=== PATIENT | female | born 1950 | race African-American/Black ===

== ENCOUNTER 2019-06-07 14:54 | Emergency (ER) | payer MEDICARE ==
[~2019-06-07] VITALS: Ht 165.1 cm; Wt 88.9 kg
[2019-06-07 16:12] VITALS: BP 146/68
[2019-06-07] MEDS ORDERED: LIDOCAINE 1% HCL (LOCAL ANESTH.) INJ 20ML MDV IJ ONE (16:45)
[2019-06-07] MEDS ORDERED: BACITRACIN TOP OINT 1 UD PKG TOP ONE (16:45)
[2019-06-07] MEDS ORDERED: TETANUS-DIPTH-ACEL PERTUSSIS 0.5ML SYRG IM ONE (18:45)
== END 2019-06-07 17:59 | disposition home or self-care (01) ==
LOC: ER 14:54
DX: S61.012A Laceration without foreign body of left thumb without damage to nail, initial encounter (principal); M19.90 Unspecified osteoarthritis, unspecified site; J45.909 Unspecified asthma, uncomplicated; I10 Essential (primary) hypertension; Z86.73 Personal history of transient ischemic attack (TIA), and cerebral infarction without residual deficits; W26.8XXA Contact with other sharp object(s), not elsewhere classified, initial encounter; Y93.G3 Activity, cooking and baking; Y99.8 Other external cause status; Y92.89 Other specified places as the place of occurrence of the external cause
CPT/HCPCS: 12001; 90471; 90715; 99283; J2001

== ENCOUNTER 2021-08-07 04:42 | Emergency (ER) | payer MEDICARE, OTHER ==
[~2021-08-07] VITALS: Ht 165.1 cm; Wt 95.3 kg
[2021-08-07] MEDS ORDERED: METOCLOPRAMIDE HCL 5MG/ml INJ 2ml VIAL IV ONE (05:00)
[2021-08-07 05:57] LABS: Basophils # (auto) 0 10 ^3/uL (0-0.2); Basophils % (auto) 0.4 % (0.0-2.0); Eosinophils # (auto) 0 10 ^3/uL (0-0.8); Eosinophils % (auto) 0.4 % (0.0-7.0); Hematocrit 35.4 % (36.0-46.0); Lymphocytes # (auto) 0.7 10 ^3/uL (0.4-5.4); Lymphocytes % (auto) 6.6 % (10.0-50.0); Mean Corpuscular Hemoglobin 30.2 pg (28.0-32.0); Mean Corpuscular Volume 88.8 fL (80.0-100.0); Monocytes # (auto) 0.4 10 ^3/uL (0-1.3); Neutrophils # (auto) 9.9 10 ^3/uL (1.6-8.6); Neutrophils % (auto) 88.6 % (37.0-80.0); Red Blood Cells 3.98 10^6/uL (4.0-5.20); Red Cell Distribution Width 13.6 % (11.8-14.3); White Blood Cell 11.1 10^3/uL (4.4-10.8)
[2021-08-07 07:38] LABS: Potassium 3.5 mmol/L (3.5-5.1)
[2021-08-07 07:42] LABS: Albumin 3.2 g/dL (3.4-5.0); BUN/Creatinine Ratio 15.9; Calcium 9.7 mg/dL (8.5-10.1)
[2021-08-07 07:44] LABS: Bilirubin, Total 0.3 mg/dL (0.2-1.0)
[2021-08-07] MEDS ORDERED: cefTRIAXone 1GM/50ML D5W 50 ML IV ONE ×2 (09:15)
[2021-08-07 10:18] VITALS: BP 132/59
== END 2021-08-07 11:06 | disposition home or self-care (01) ==
LOC: EDBD 04:42 → ER 04:42
DX: R10.84 Generalized abdominal pain (principal); R11.2 Nausea with vomiting, unspecified; I11.0 Hypertensive heart disease with heart failure; I50.9 Heart failure, unspecified; Z86.73 Personal history of transient ischemic attack (TIA), and cerebral infarction without residual deficits
CPT/HCPCS: 36415; 74176; 80053; 85025; 93005; 96365; 96375; 99285; J0696; J2765

== ENCOUNTER 2023-03-09 10:26 | Inpatient (IN) | payer MEDICARE, MEDICAID ==
[~2023-03-09] VITALS: Ht 162.6 cm; Wt 63.5 kg
[2023-03-09] MEDS ORDERED: ACETAMINOPHEN 500 MG TAB PO ONE (12:15)
[2023-03-09 12:59] LABS: Basophils # (auto) 0 10 ^3/uL (0-0.2); Basophils % (auto) 0.3 % (0.0-2.0); Eosinophils # (auto) 0 10 ^3/uL (0-0.8); Eosinophils % (auto) 0.4 % (0.0-7.0); Hematocrit 38.1 % (36.0-46.0); Hemoglobin 12.8 g/dL (12.2-16.2); Lymphocytes # (auto) 1.3 10 ^3/uL (0.4-5.4); Lymphocytes % (auto) 12.4 % (10.0-50.0); Mean Corpuscular Hgb Conc. 33.6 g/dL (32.0-36.0); Mean Corpuscular Volume 92.1 fL (80.0-100.0); Monocytes # (auto) 0.6 10 ^3/uL (0-1.3); Monocytes % (auto) 6.1 % (0.0-12.0); Neutrophils # (auto) 8.3 10 ^3/uL (1.6-8.6); Neutrophils % (auto) 80.8 % (37.0-80.0); Red Blood Cells 4.13 10^6/uL (4.0-5.20); Red Cell Distribution Width 13.3 % (11.8-14.3); White Blood Cell 10.2 10^3/uL (4.4-10.8)
[2023-03-09 13:24] LABS: Albumin 3.8 g/dL (3.4-5.0); Calcium 9.9 mg/dL (8.5-10.1); Potassium 4.2 mmol/L (3.5-5.1)
[2023-03-09 13:28] LABS: BUN/Creatinine Ratio 21.7 (10.0-20.0); Bilirubin, Total 0.4 mg/dL (0.2-1.0); Total Protein 6.6 g/dL (6.4-8.2)
[2023-03-09] MEDS ORDERED: AMLO-489 PO (15:14)
[2023-03-09] MEDS ORDERED: QUET1TAB11 PO (15:14)
[2023-03-09] MEDS ORDERED: DONE1TAB88 PO (15:14)
[2023-03-09] MEDS ORDERED: ONDANSETRON HCL 4 MG/2 ML VIAL IV PRN (15:15)
[2023-03-09] MEDS ORDERED: ACETAMINOPHEN 325 MG TAB PO PRN (15:15)
[2023-03-09] MEDS: SODIUM CHLORIDE 0.9% 1,000 ML IV SCH (15:15)
[2023-03-09] MEDS ORDERED: NITROGLYCERIN 0.4 MG SL TAB SL PRN (15:15)
[2023-03-09] MEDS ORDERED: MORPHINE SULFATE INJ 2 MG/ml SYRG IV PRN (15:15)
[2023-03-09] MEDS: amLODIPine BESYLATE 5 MG TAB PO SCH (15:30)
[2023-03-09] MEDS ORDERED: HALOPERIDOL LACTATE 5 MG/ML INJ VIAL IM PRN (20:00)
[2023-03-09] MEDS ORDERED: LORazepam 2MG/ML-1ML VIAL IV PRN (20:00)
[2023-03-09 21:50] LABS: Folate (Folic Acid) > 24.00 ng/mL (5.38-24)
[2023-03-09] MEDS ORDERED: DONEPEZIL HYDROCHLORIDE 5 MG TAB PO SCH (22:00)
[2023-03-10] MEDS: DONEPEZIL HYDROCHLORIDE 5 MG TAB PO SCH ×2 (00:22→21:29)
[2023-03-10] MEDS: HYDROcodone-ACET 5/325MG TAB PO PRN ×3 (00:24→21:30)
[2023-03-10] MEDS: QUEtiapine FUMARATE 25 MG TAB PO SCH ×3 (00:24→21:29)
[2023-03-10] MEDS: SODIUM CHLORIDE 0.9% 1,000 ML IV SCH ×3 (00:27→21:15)
[2023-03-10 06:05] LABS: Basophils # (auto) 0 10 ^3/uL (0-0.2); Basophils % (auto) 0.6 % (0.0-2.0); Eosinophils # (auto) 0.1 10 ^3/uL (0-0.8); Eosinophils % (auto) 1.7 % (0.0-7.0); Hematocrit 33.9 % (36.0-46.0); Hemoglobin 11.5 g/dL (12.2-16.2); Lymphocytes # (auto) 1.6 10 ^3/uL (0.4-5.4); Lymphocytes % (auto) 24.2 % (10.0-50.0); Mean Corpuscular Hemoglobin 30.9 pg (28.0-32.0); Monocytes # (auto) 0.6 10 ^3/uL (0-1.3); Neutrophils # (auto) 4.4 10 ^3/uL (1.6-8.6); Neutrophils % (auto) 64.5 % (37.0-80.0); Nucleated Red Blood Cells % 0.1 %; Red Blood Cells 3.73 10^6/uL (4.0-5.20); Red Cell Distribution Width 13.6 % (11.8-14.3); White Blood Cell 6.8 10^3/uL (4.4-10.8)
[2023-03-10 06:23] LABS: Calcium 9.3 mg/dL (8.5-10.1); Potassium 3.8 mmol/L (3.5-5.1)
[2023-03-10 06:25] LABS: BUN/Creatinine Ratio 22.2 (10.0-20.0)
[2023-03-10 06:28] LABS: Bilirubin, Total 0.4 mg/dL (0.2-1.0); Total Protein 6.2 g/dL (6.4-8.2)
[2023-03-10] MEDS: amLODIPine BESYLATE 5 MG TAB PO SCH (09:41)
[2023-03-10] MEDS ORDERED: amLODIPine BESYLATE 5 MG TAB PO SCH (10:00)
[2023-03-10 14:17] VITALS: BP 129/69
[2023-03-10 14:30] VITALS: BP 129/69
[2023-03-10 16:55] VITALS: BP 136/87
[2023-03-10 20:00] VITALS: BP 132/72
[2023-03-10 22:00] VITALS: BP 132/72
[2023-03-11 03:41] LABS: Urine Bacteria NONE SEEN /hpf (None Seen); Urine Blood Negative /uL (Negative); Urine Mucus FEW (None Seen); Urine WBC 7 /hpf (0 - 5)
[2023-03-11 05:00] VITALS: BP 122/74
[2023-03-11] MEDS: SODIUM CHLORIDE 0.9% 1,000 ML IV SCH (06:51)
[2023-03-11 07:30] VITALS: BP 154/78
[2023-03-11 09:00] VITALS: BP 154/78
[2023-03-11] MEDS: amLODIPine BESYLATE 5 MG TAB PO SCH (11:45)
[2023-03-11] MEDS: QUEtiapine FUMARATE 25 MG TAB PO SCH (11:46)
[2023-03-11 12:58] VITALS: BP 154/78
[2023-03-11 13:00] VITALS: BP 92/57
== END 2023-03-11 15:23 | disposition home health service (06) | DRG 562 ==
LOC: ER 10:26 → OVERFLOW 15:14 → EAST 03-10 14:03
PROVIDERS: ADMIT Nurse Practitioner Family; ATTEND Family Medicine
PROC: 4A00X4Z Measurement of Central Nervous Electrical Activity, External Approach (ICD-10-PCS; principal; 2023-03-10)
DX: S42.91XA Fracture of right shoulder girdle, part unspecified, initial encounter for closed fracture (principal); G93.41 Metabolic encephalopathy; G91.2 (Idiopathic) normal pressure hydrocephalus; F02.C18 Dementia in other diseases classified elsewhere, severe, with other behavioral disturbance; G30.9 Alzheimer's disease, unspecified; G47.00 Insomnia, unspecified; I11.0 Hypertensive heart disease with heart failure; I50.9 Heart failure, unspecified; E86.0 Dehydration; S40.011A Contusion of right shoulder, initial encounter; W18.39XA Other fall on same level, initial encounter; R29.6 Repeated falls; Z86.73 Personal history of transient ischemic attack (TIA), and cerebral infarction without residual deficits; Z79.899 Other long term (current) drug therapy; Z98.2 Presence of cerebrospinal fluid drainage device; Y93.89 Activity, other specified; Y92.89 Other specified places as the place of occurrence of the external cause; Y99.8 Other external cause status
CPT/HCPCS: 36415; 70450; 70551; 73030; 80053; 81001; 82607; 82746; 84443; 84484; 85025; 93005; 95819; 96360; 97110; 97116; 97163; 97530; G0378

== ENCOUNTER 2024-09-25 05:03 | Emergency (ER) | payer MEDICARE, MEDICAID ==
[~2024-09-25] VITALS: Ht 167.6 cm; Wt 75.0 kg
[~2024-09-25 05:03] MED LIST: AMLO1TAB22 PO; DONE1TAB88 PO; QUET1TAB11 PO
[2024-09-25 05:30] VITALS: PULSE 65; RESP 16; TEMP 97.9; O2SAT 97
--- NOTE | 2024-09-25 06:22 | ECG ---
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
--- NOTE | 2024-09-25 07:18 | DVH ---
EXAM: CT HEAD WITHOUT CONTRAST INDICATION: syncope TECHNIQUE: CT of the head without intravenous contrast. Coronal and sagittal reformatted images are submitted. Radiation Dose : 1. Head: CT Dose: CTDI volume is 59.02 mGy. Dose-length product is 828.03 mGy*cm The dose indicators for CT are the volume Computed Tomography (CT) Dose Index (CTDIvol) and the Dose Length Product (DLP), and are measured in units of mGy and mGy-cm, respectively. These indicators are not patient dose, but values generated from the CT scanner acquisition factors. The report includes radiation exposure data for exposures received during this examination. All CT scans at this medical facility are performed using dose modulation techniques as appropriate to a performed exam including the following: Automated exposure control was utilized; adjustment of the MA and/or KV according to patient size; and use of iterative reconstruction technique. COMPARISON: MRI BRAIN HEAD WO CONTRAST on DOS: 03/10/23 FINDINGS: There is no evidence of acute intracranial hemorrhage, extra-axial collection, mass effect, midline s hift, herniation or hydrocephalus. Right frontal approach ventricular catheter terminating in the left lateral ventricle body is unchang ed. No hydrocephalus. There are periventricular and subcortical hypodensities, nonspecific, but likely reflecting sequelae of chronic microvascular ischemic changes. The white-white differentiation is intact. The visualized paranasal sinuses and mastoid air cells are clear. No depressed calvarial fracture. The surrounding soft tissues are unremarkable. IMPRESSION: 1. No evidence of acute intracranial abnormality. 2. Stable position of right ventricular catheter. No hydrocephalus.
--- NOTE | 2024-09-25 07:19 | DVH ---
CHEST RADIOGRAPH Indication: Syncope Technique: Single frontal view of the chest was obtained Comparison: None FINDINGS: Lines and Tubes: There is a catheter overlying the right neck and chest. Lungs: No focal consolidation. Pleura: No effusion. No pneumothorax. Cardiomediastinal contours: Unremarkable Bones: No acute osseous abnormality. IMPRESSION: 1. No acute cardiopulmonary disease.
--- NOTE | 2024-09-25 07:22 | ED.PDOC ---
History of Present Illness HPI Comments 74-year-old female brought in by EMS presents with a chief complaint of generalized weakness and increase in falls at home. Patients daughter is bedside and explains that patient has become more of a fall risk at home and has fallen multiple times. Patients daughter reports that when patient attempts to stand at all, "her legs give out and she just drops herself to the floor". Patient denies hitting her head or losing consciousness. Patients daughter reports that patient has been gradually losing her balance for the past x 2 years. Chief Complaint: Fall Injury Time Seen by MD: 06:26 Primary Care Provider: LOIS Escalona Notes: Medications, Allergies Allergies: Coded Allergies: NO KNOWN ALLERGIES (Unverified , 08/07/21) Home Meds Reported Medications Donepezil Hydrochloride (DONEPEZIL HCL) 10 Mg Tab, 1 TAB PO DAILY 03/09/23 Quetiapine Fumerate (QUETIAPINE FUMARATE) 25 Mg Tab, 1 TAB PO BID 03/09/23 Amlodipine Besylate (Amlodipine Besylate) 5 Mg Tab, 1 TAB PO DAILY 03/09/23 Information Source: Relative (Child) Mode of Arrival: EMS Severity: Moderate Timing: Months, Came on: Gradually Duration: Intermittent Prehospital treatment: None Past Medical History PAST MEDICAL HISTORY: CHF, HTN, TIA Surgical History: Unknown SAP 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: 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 Family History Family History: Reviewed,noncontributory to illness Social History Smoker: Non-Smoker Alcohol: Denies ETOH Use Drugs: Denies Drug Use Lives In: Home Constitutional: reports: weakness; denies: chills, diaphoresis, fatigue, fever, malaise, sweats, others EENTM: denies: blurred vision, double vision, ear bleeding, ear discharge, ear drainage, ear pain, ear ringing, eye pain, eye redness, hearing loss, mouth pain, mouth swelling, nasal discharge, nose bleeding, nose congestion, nose pain, photophobia, tearing, throat pain, throat swelling, voice changes, others Respiratory: denies: cough, hemoptysis, orthopnea, SOB at rest, shortness of breath, SOB with excertion, stridor, wheezing, others Cardiovascular: denies: chest pain, dizzy spells, diaphoresis, Dyspnea on exertion, edema, irregular heart beat, left arm pain, lightheadedness, palpitations, PND, syncope, others Gastrointestinal: denies: abdomen distended, abdominal pain, blood streaked bowels, constipated, diarrhea, dysphagia, difficulty swallowing, hematemesis, melena, nausea, poor appetite, poor fluid intake, rectal bleeding, rectal pain, vomiting, others Genitourinary: denies: abnormal vagina bleeding, burning, dyspareunia, dysuria, flank pain, frequency, hematuria, incontinence, pain, , vagina discharge, urgency, others Neurological: denies: dizziness, fainting, headache, left sided numbness, left sided weakness, numbness, paresthesia, pre-existing deficit, right sided numbness, right sided weakness, seizure, speech problems, tingling, tremors, weakness, others Musculoskeletal: denies: back pain, gout, joint pain, joint swelling, muscle pain, muscle stiffness, neck pain, others Integumetry: denies: bruises, change in color, change in hair/nails, dryness, laceration, lesions, lumps, rash, wounds, others Allergic/Immunocompromised: denies: Difficulty Healing, Frequent Infections, Hives, Itching, others Hematologic/Lymphatic: denies: anemia, blood clots, easy bleeding, easy bruising, swollen glands, others Endocrine: denies: excessive hunger, excessive sweating, excessive thirst, excessive urination, flushing, intolerance to cold, intolerance to heat, unexplained weight gain, unexplained weight loss, others Psychiatric: denies: anxiety, bipolar disorder, depression, hopeless, panic disorder, schizophrenia, sleepless, suicidal, others All Other Systems: Reviewed and Negative Physical Exam General Appearance: No Apparent Distress, Normal HEENT: Normal ENT Inspection, Pharynx Normal, TMs Normal Neck: Full Range of Motion, Non-Tender, Normal, Normal Inspection Respiratory: Chest Non-Tender, Lungs Clear, No Accessory Muscle Use, No Respiratory Distress, Normal Breath Sounds Cardiovascular: No Edema, No JVD, No Murmur, No Gallop, Normal Peripheral Pulses, Regular Rate/Rhythm Breast Exam: Deferred Gastrointestinal: No Organomegaly, Non Tender, No Pulsatile Mass, Normal Bowel Sounds, Soft Genitalia: Deferred Pelvic: Deferred Rectal: Deferred Extremities: No calf tenderness, Normal capillary refill, Normal inspection, Normal range of motion, Non-tender, No pedal edema Musculoskeletal : Apperance: Normal Neurologic: Alert, clinical field specialist II-XII nml as Tested, No Motor Deficits, Normal Affect, Normal Mood, No Sensory Deficits Cerebellar Function: Normal Reflexes: Normal Skin: Dry, Normal Color, Warm Lymphatic: No Adenopathy Was a procedure done? Was a procedure done?: No Differential Dx Considerations may include: Electrolyte abnormalities, infectious etiology, traumatic injury X-Ray, Labs, Meds, VS Vital Signs Date Time Temp Pulse Resp B/P (MAP) Pulse Ox O2 Delivery O2 Flow Rate FiO2 09/25/24 08:20 16 96 Room Air* 0 21 09/25/24 05:30 97.9 65 16 156/69 (98) 97 97.9 09/25/24 05:30 65 16 97 Room Air* 0 21 09/25/24 05:09 69 09/25/24 05:08 97.8 67 18 156/70 (98) 97 Lab Test 09/25/24 08:26 09/25/24 08:24 09/25/24 07:03 Range/Units Urine Color Colorless Yellow Urine Clarity Clear Clear Urine pH 6.5 5.0-9.0 Urine Specific [place] 1.013 1.001-1.035 Urine Protein Negative Negative Urine Ketones Negative Negative Urine Blood Negative Negative /uL Urine Nitrite Negative Negative Urine Bilirubin Negative Negative Urine Urobilinogen Normal Negative mg/dL Urine Leukocyte Esterase Negative Negative /uL Urine RBC 2 0 - 4 /hpf Urine WBC 1 0 - 5 /hpf Urine Squamous Epithelial Cells Few <5 /hpf Urine Bacteria None seen None Seen /hpf Urine Glucose Normal Normal mg/dL Troponin I High Sensitivity 5 3 L </=34 ng/L White Blood Count 6.9 4.4-10.8 10^3/uL Red Blood Count 3.76 L 4.0-5.20 10^6/uL Hemoglobin 12.0 L 12.2-16.2 g/dL Hematocrit 35.2 L 36.0-46.0 % Mean Corpuscular Volume 93.6 80.0-100.0 fL Mean Corpuscular Hemoglobin 32.0 28.0-32.0 pg Mean Corpuscular Hemoglobin Concent 34.2 32.0-36.0 g/dL Red Cell Distribution Width 12.9 11.8-14.3 % Platelet Count 185 140-450 10^3/uL Mean Platelet Volume 8.3 6.9-10.8 fL Neutrophils (%) (Auto) 75.5 37.0-80.0 % Lymphocytes (%) (Auto) 12.4 10.0-50.0 % Monocytes (%) (Auto) 10.4 0.0-12.0 % Eosinophils (%) (Auto) 1.1 0.0-7.0 % Basophils (%) (Auto) 0.6 0.0-2.0 % Neutrophils # (Auto) 5.2 1.6-8.6 10 ^3/uL Lymphocytes # (Auto) 0.9 0.4-5.4 10 ^3/uL Monocytes # (Auto) 0.7 0-1.3 10 ^3/uL Eosinophils # (Auto) 0.1 0-0.8 10 ^3/uL Basophils # (Auto) 0 0-0.2 10 ^3/uL Nucleated Red Blood Cells 0.0 % Sodium Level 143 136-145 mmol/L Potassium Level 3.8 3.5-5.1 mmol/L Chloride Level 110 H 98-107 mmol/L Carbon Dioxide Level 26 20-31 mmol/L Anion Gap 7 5-15 Blood Urea Nitrogen 24 H 9-23 mg/dL Creatinine 1.06 H 0.550-1.02 mg/dL Glomerular Filtration Rate Calc 55 >90 mL/min BUN/Creatinine Ratio 22.6 H 10.0-20.0 Serum Glucose 91 74-106 mg/dL Calcium Level 10.3 8.7-10.4 mg/dL Time of 1ST Reevaluation: 06:56 Reevaluation 1ST: Unchanged Patient Education/Counseling: Diagnosis, Treatment, Prognosis Family Education/Counseling: No Family Present Departure 1 Departure Time of Disposition: 09:53 (Patients workup is benign. Discussed with patient and patients family and offered admission but they would like to go home.) Impression: Primary Impression: Frequent falls Disposition: 01 HOME / SELF CARE / HOMELESS Condition: Stable Additional Instructions: Your workup today was benign. You can take Tylenol or Motrin as needed for pain. You should follow up with your regular doctor within 1 week. You should stay well rested and well hydrated. If your symptoms worsen or you have any other concerns please return to the emergency room. Discharged With: Component Inspector Critical Care Note Critical Care Time?: No Stability Stability form required: No I personally scribed for LOWELL SOTO MD ([email or web address]) on 09/25/24 at 07:22. Electronically submitted by Ozzie Brunson ([email or web address]). LOWELL SOTO MD Sep 25, 2024 07:22
[2024-09-25 07:24] LABS: Chloride 110 mmol/L (98-107); Potassium 3.8 mmol/L (3.5-5.1); Sodium 143 mmol/L (136-145)
[2024-09-25 07:25] LABS: Anion Gap 7 (5-15); Calcium 10.3 mg/dL (8.7-10.4); Carbon Dioxide 26 mmol/L (20-31)
[2024-09-25 07:26] LABS: Basophils # (auto) 0 10 ^3/uL (0-0.2); Basophils % (auto) 0.6 % (0.0-2.0); Eosinophils # (auto) 0.1 10 ^3/uL (0-0.8); Eosinophils % (auto) 1.1 % (0.0-7.0); Hematocrit 35.2 % (36.0-46.0); Lymphocytes # (auto) 0.9 10 ^3/uL (0.4-5.4); Lymphocytes % (auto) 12.4 % (10.0-50.0); Mean Corpuscular Hgb Conc. 34.2 g/dL (32.0-36.0); Mean Corpuscular Volume 93.6 fL (80.0-100.0); Monocytes # (auto) 0.7 10 ^3/uL (0-1.3); Monocytes % (auto) 10.4 % (0.0-12.0); Neutrophils # (auto) 5.2 10 ^3/uL (1.6-8.6); Neutrophils % (auto) 75.5 % (37.0-80.0); Platelet Count (auto) 185 10^3/uL (140-450); Red Blood Cells 3.76 10^6/uL (4.0-5.20); Red Cell Distribution Width 12.9 % (11.8-14.3); White Blood Cell 6.9 10^3/uL (4.4-10.8)
[2024-09-25 07:30] LABS: BUN/Creatinine Ratio 22.6 (10.0-20.0); Blood Urea Nitrogen 24 mg/dL (9-23); Glucose 91 mg/dL (74-106)
--- NOTE | 2024-09-25 07:30 | DVH ---
CLINICAL INFORMATION: 74 years old, Female; Syncope. TECHNIQUE: Single AP view of the pelvis was obtained. COMPARISON: None FINDINGS: No evidence of acute fracture or dislocation. Sacrum is partially obscured by bowel gas. Mo derate joint space narrowing in both hips with associated subchondral sclerosis. Mild sclerosis adjac ent to the sacroiliac joints and pubic symphysis. Calcifications in the pelvis are most likely phlebo liths. There is partially visualized catheter tubing overlying the left lower abdomen. Adjacent soft tissues are unremarkable. IMPRESSION: 1. No evidence of acute bony abnormality. Correlate with clinical findings. 2. Additional nonacute findings as detailed above.
[2024-09-25 08:00] VITALS: BP 134/71; PULSE 70
[2024-09-25 08:20] VITALS: RESP 16; O2SAT 96
[2024-09-25 08:54] LABS: Urine Bacteria None Seen /hpf (None Seen)
[2024-09-25 09:28] LABS: Urine Blood Negative /uL (Negative); Urine Clarity Clear (Clear); Urine Color Colorless (Yellow); Urine Protein, UAD Negative (Negative); Urine Specific Gravity 1.013 (1.001-1.035); Urine Urobilinogen Normal (Negative); Urine WBC 1 /hpf (0 - 5); Urine pH 6.5 (5.0-9.0)
== END 2024-09-25 09:50 | disposition home or self-care (01) ==
LOC: EDBD 05:03 → ER 05:03
DX: R29.6 Repeated falls (principal); I11.0 Hypertensive heart disease with heart failure; I50.89 Other heart failure; Z79.899 Other long term (current) drug therapy
CPT/HCPCS: 36415; 70450; 71045; 72170; 80048; 81001; 84484; 85025; 93005